=== PATIENT | male | born 1970 | race Caucasian/White ===

== ENCOUNTER 2018-09-24 12:18 | Outpatient (CLI) | payer SELFPAY ==
[~2018-09-24] VITALS: Ht 182.9 cm; Wt 122.5 kg
[2018-09-24] MEDS ORDERED: METF-399 PO (15:09)
[2018-09-24] MEDS ORDERED: SULF1TAB35 PO (15:09)
[2018-09-24] MEDS ORDERED: INSU100I10 SQ (15:09)
== END 2018-09-24 15:16 | disposition home or self-care (01) ==
LOC: PREOP 12:18
PROVIDERS: ATTEND Podiatrist Foot & Ankle Surgery
DX: Z01.818 Encounter for other preprocedural examination (principal)

== ENCOUNTER 2018-09-26 08:58 | Day surgery (SDC) | payer SELFPAY ==
[~2018-09-26] VITALS: Ht 182.9 cm; Wt 122.5 kg
[~2018-09-26 08:58] MED LIST: INSU100I10 SQ; METF-399 PO; SULF1TAB35 PO
[2018-09-26] MEDS ORDERED: LACTATED RINGERS 1,000 ML IV PRN (09:08)
[2018-09-26] MEDS ORDERED: BUPIVACAINE 0.5% 30 ML (SENSORCAINE) VIAL ONE (09:09)
[2018-09-26] MEDS ORDERED: LIDOCAINE 1% INJ 20 ML 20 ML VIAL ONE (09:09)
[2018-09-26 09:20] VITALS: BP 131/84
[2018-09-26] MEDS ORDERED: fentaNYL INJECTION 100 MCG/2 ML AMP ONE (09:27)
[2018-09-26] MEDS ORDERED: PROPOFOL INJECTION 50 ML IV ONE (09:27)
[2018-09-26] MEDS ORDERED: MIDAZOLAM 2 MG/2 ML (VERSED) VIAL ONE (09:27)
[2018-09-26] MEDS ORDERED: VANCOMYCIN INJECTION 1,000 MG in NS (IVPB) 250 ML IV ONE (10:00)
--- NOTE | 2018-09-26 10:45 | Anesthesia-General Post-Op ---
MAC Patient Condition Mental Status/LOC: Same as Preop Cardiovascular: Satisfactory Nausea/Vomiting: Absent Respiratory: Satisfactory Pain: Controlled Complications: Absent Post Op Complications Complications None Follow Up Care/Instructions Patient Instructions None needed. Anesthesiology Discharge Order Discharge Order Patient is doing well, no complaints, stable vital signs, no apparent adverse anesthesia problems. No complications reported per nursing. THOMAS BURROUGHS CRNA Sep 26, 2018 10:45
[2018-09-26] MEDS ORDERED: LACTATED RINGERS 1,000 ML IV SCH (10:46)
--- NOTE | 2018-09-26 10:46 | Progress Note-Pre Operative ---
Pre-Operative Progress Note H&P Reviewed The H&P was reviewed, patient examined and no changes noted. Date Seen by Provider: Sep 26, 2018 Time Seen by Provider: 10:00 Date H&P Reviewed: Sep 26, 2018 Time H&P Reviewed: 10:01 Pre-Operative Diagnosis: Osteomyelitis left 3rd digit REBEKAH TORRES DPLaura Sep 26, 2018 10:46
[2018-09-26 11:15] VITALS: BP 113/82
[2018-09-26 11:45] VITALS: BP 120/84
[2018-09-26 12:10] VITALS: BP 120/84
--- NOTE | 2018-09-26 13:02 | Physical Therapy Ortho Eval ---
PT Orthopedic Evaluation Type of Surgery left toe osteomyelitis Prior Level of Function Current Living Status: Spouse Locomotion (Upon Admit): Independent Established Durable Medical Eq: None Patient states he can get a walker from a friend. Subjective Subjective Patient in bed pre tx, agrees to PT, has no complaints of pain, states his left foot is still pretty numb. Entry Into Home: Ramp Motor Control Motor Control: Motor Control WNL ROM ROM: WFL Strength NT Transfer Transfers (B, C, W/C) (FIM): 6 Gait Gait Assistive Device: FWW Right Lower Extremity: Right Weight Bearing Status RLE: Full Weight Bearing Left Lower Extremity: Left Weight Bearing Status LLE: Partial Weight Bearing Gait (FIM): 6 Distance: 200' Gait Level of Assist: 6 Summary/Comments Patient ambulated 200' with a rolling walker with mod I, he is compliant with his weight bearing status. Patient also went up and down 1 step using a rolling walker with SBA and cues for foot placement. Treatment Rendered Treatment: Therapeutic Exercises, Gait Train, Step Train Exercise Instruction: Quad Sets, Heel Slides, Ankle Pumps Assessment/Goals Goal Time Frame: 1 Visit Understands HEP: Yes Safe Ambulation: Yes Plan Treatment Plan: Discharge PT/Family Agrees to Plan: Yes Time Time In: 1155 Time Out: 1205 Total Billed Treatment Time: 10 Billed Treatment Time 1 visit TAE ARMIJO PT Sep 26, 2018 13:02
--- OUTSIDE RECORDS SUMMARY | 2018-09-26 13:41 | XMS REPORT | Continuity of Care Document ---
Demographics Preferred Language Unknown Marital Status Unknown Gnosticist Affiliation Unknown Race Unknown Ethnic Group Unknown Author Organization Unknown Address Unknown Allergies There is no data. Medications There is no data. Problems There is no data. Procedures There is no data. Results Test Result Range CULTURE, ANAEROBIC AND AEROBIC - 09/08/18 13:30 CULTURE, ANAEROBIC BACTERIA W/GRAM STAIN NRG CULTURE, AEROBIC BACTERIA NRG A1C - 09/15/18 08:48 HEMOGLOBIN A1c 7.9 % of total Hgb <5.7 CBC w/MANUAL DIFF - 09/15/18 18:10 WHITE BLOOD CELL COUNT 8.4 Thousand/uL 3.8-10.8 RED BLOOD CELL COUNT 5.62 Million/uL 4.20-5.80 HEMOGLOBIN 16.3 g/dL 13.2-17.1 HEMATOCRIT 48.3 % 38.5-50.0 MCV 85.9 fL 80.0-100.0 MCH 29.0 pg 27.0-33.0 MCHC 33.7 g/dL 32.0-36.0 RDW 12.7 % 11.0-15.0 PLATELET COUNT 265 Thousand/uL 140-400 MPV 10.6 fL 7.5-12.5 DIFFERENTIAL, MANUAL - 09/15/18 18:10 ABSOLUTE NEUTROPHILS 4956 cells/uL 4193-9166 ABSOLUTE MONOCYTES 336 cells/uL 200-950 ABSOLUTE EOSINOPHILS 168 cells/uL 15-500 ABSOLUTE BASOPHILS 168 cells/uL 0-200 NEUTROPHILS 59 % NRG LYMPHOCYTES 31 % NRG MONOCYTES 4 % NRG EOSINOPHILS 2 % NRG BASOPHILS 2 % NRG ABSOLUTE BAND NEUTROPHILS 168 cells/uL 0-750 ABSOLUTE LYMPHOCYTES 2604 cells/uL 850-3900 BAND NEUTROPHILS 2 % NRG PLATELET ESTIMATION ADEQUATE ADEQUATE CBC MORPHOLOGY NORMAL Encounters ACCT No. Visit Date/Time Discharge Status Pt. Type Provider Facility Loc./Unit Complaint [id number] 12/16/2017 00:00:00 12/16/2017 23:59:59 CLS Outpatient [facility] 5 mins [id number] 09/24/2018 10:00:00 ACT Outpatient Jazmin Reilly [facility] [id number] 09/15/2018 18:08:00 Document Registration [id number] 09/08/2018 11:00:00 Document Registration
--- NOTE | 2018-09-26 20:27 | OPERATIVE REPORT ---
DATE OF SERVICE: 09/26/2018 SURGEON: Nithya Torres DPM PREOPERATIVE DIAGNOSIS: Osteomyelitis, left third toe. POSTOPERATIVE DIAGNOSIS: Osteomyelitis, left third toe. PROCEDURE: Partial amputation of left third toe. WOUND CLASS: Contaminated. ANESTHESIA: Monitored anesthesia care. HEMOSTASIS: Pneumatic ankle tourniquet at 250 mmHg. INDICATIONS: This 48-year-old male presents with a chronic wound to the distal aspect of the left third toe. With evaluation of the ulceration probed down to bone, x-rays indicated significant osteolysis of the distal phalanx, left third toe. Conservative therapy has met with unsatisfactory results and the patient is agreeable to surgical intervention after risks and complications were discussed at length. No guarantees were extended to the patient and he is willing to proceed. DESCRIPTION OF PROCEDURE: The patient was brought back to the operating room table, placed in a secure supine position. Appropriate timeout was performed. Local anesthetic was administered utilizing aseptic technique including injection of 10 mL of 0.5% Marcaine to the left third ray. The left foot was prepped and draped in normal sterile manner. The left foot was then elevated and allowed to exsanguinate, after which the tourniquet was inflated to 250 mmHg. Attention was then directed to the dorsal aspect of the left third toe where an incision was created overlying the proximal phalanx from medial to lateral. The incision was then extended distally and plantarly creating a plantar flap. The digit was then disarticulated at the proximal interphalangeal joint and the distal fragment was sent for gross and microscopic evaluation after a sample of the distal phalanx was taken for culture and sensitivity. The remaining portion of the proximal left third toe was without pathology. No abscess, no necrosis, no malodor identified. The extensor and flexor tendons were cut as proximally as possible. The wound was flushed with copious amounts of normal saline. A swab culture was taken of the remainder of the left third toe. The wound was then closed utilizing 4-0 Vicryl in a simple interrupted type stitch with the plantar flap suture without tension. The tourniquet was released noting appropriate cap refill time to all digits of the left foot. Postoperative dressing consisted of Betadine soaked Adaptic, sterile 4 x 4, sterile Kerlix, all secured with Coban wrap. The patient tolerated the anesthesia and procedure well, was transported from the operating room to the recovery area with vital signs stable and vascular status intact to all digits of the left foot. He is to continue with Bactrim antibiotic. He is to follow up at the [facility] in 1 week period of time or sooner if necessary. Job ID: [id number] DocumentID: [id number] Dictated Date: 09/26/2018 10:54:45 Public Health Doctor Date: 09/26/2018 20:26:56 Dictated By: NITHYA TORRES DPM
== END 2018-09-26 12:10 | disposition home or self-care (01) ==
LOC: SDC 08:58
PROVIDERS: ATTEND Podiatrist Foot & Ankle Surgery
DX: E11.69 Type 2 diabetes mellitus with other specified complication (principal); M86.9 Osteomyelitis, unspecified; E11.42 Type 2 diabetes mellitus with diabetic polyneuropathy; F41.9 Anxiety disorder, unspecified; G47.33 Obstructive sleep apnea (adult) (pediatric); K21.9 Gastro-esophageal reflux disease without esophagitis; E66.9 Obesity, unspecified; Z68.36 Body mass index [BMI] 36.0-36.9, adult; Z79.4 Long term (current) use of insulin; Z79.899 Other long term (current) drug therapy; Z87.891 Personal history of nicotine dependence
CPT/HCPCS: 82962; 87070; 87075; 87077; 87081; 87101; 87205

== ENCOUNTER 2019-08-31 19:14 | Inpatient (IN) | payer SELFPAY ==
[~2019-08-31] VITALS: Ht 182.8 cm; Wt 129.3 kg
[2019-08-31] MEDS ORDERED: KETOROLAC 30 MG/ML VIAL IVP STA (19:48)
[2019-08-31] MEDS ORDERED: NS 100 ML (IVPB) BAG IV ONE (20:00)
[2019-08-31] MEDS ORDERED: ONDANSETRON 4 MG/2 ML (SDV) Z0FRAN IVP ONE (20:00)
[2019-08-31] MEDS ORDERED: PANTOPRAZOLE 40 MG (PROTONIX) VIAL IV ONE ×2 (20:00→22:30)
[2019-08-31] MEDS ORDERED: HOLD METFORMIN - RECEIVED CONTRAST 20 ML VIAL IV SCH (20:00)
[2019-08-31] MEDS ORDERED: IOHEXOL 350 MG/ML 100 ML (OMNIPAQUE 350) VIAL IV ONE (20:00)
[2019-08-31 20:02] LABS: BASOPHILS # (AUTO) 0.1 10^3/uL (0.0-0.1); BASOPHILS % (AUTO) 0 % (0-10); EOSINOPHILS # (AUTO) 0.2 10^3/uL (0.0-0.3); EOSINOPHILS % (AUTO) 2 % (0-10); HEMATOCRIT 48 % (40-54); HEMOGLOBIN 16.6 G/DL (13.3-17.7); LYMPHOCYTES # (AUTO) 2.6 X 10^3 (1.0-4.0); LYMPHOCYTES % (AUTO) 24 % (12-44); MEAN CORPUSCULAR HEMOGLOBIN 28 PG (25-34); MEAN CORPUSCULAR HGB CONC 35 G/DL (32-36); MEAN CORPUSCULAR VOLUME 81 FL (80-99); MEAN PLATELET VOLUME 10.3 FL (7.4-10.4); MONOCYTES # (AUTO) 0.8 X 10^3 (0.0-1.0); MONOCYTES % (AUTO) 7 % (0-12); NEUTROPHILS # (AUTO) 7.5 X 10^3 (1.8-7.8); NEUTROPHILS % (AUTO) 67 % (42-75); PLATELET COUNT 291 10^3/uL (130-400); RED CELL DISTRIBUTION WIDTH 13.7 % (10.0-14.5); WHITE BLOOD COUNT 11.2 10^3/uL (4.3-11.0)
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
[2019-08-31 20:36] LABS: ALANINE AMINOTRANSFERASE 36 U/L (0-55); ALBUMIN 4.7 GM/DL (3.2-4.5); ALKALINE PHOSPHATASE 78 U/L (40-136); AMYLASE 151 U/L (25-125); BILIRUBIN,TOTAL 0.4 MG/DL (0.1-1.0); BUN/CREATININE RATIO 10; CALCIUM 9.4 MG/DL (8.5-10.1); CARBON DIOXIDE 21 MMOL/L (21-32); CHLORIDE 104 MMOL/L (98-107); CREATININE SERUM 0.97 MG/DL (0.60-1.30); GFR ESTIMATED > 60; GLUCOSE 165 MG/DL (70-105); LIPASE 97 U/L (8-78); POTASSIUM 4.2 MMOL/L (3.6-5.0); SODIUM 138 MMOL/L (135-145)
--- NOTE | 2019-08-31 20:45 | Diagnostic Imaging Report ---
PROCEDURE: CT abdomen and pelvis with contrast, rule out appendicitis. TECHNIQUE: Multiple contiguous axial images were obtained through the abdomen and pelvis after the administration of intravenous contrast. All CT scans use one or more of the following dose optimizing techniques: automated exposure control, MA and/or KvP adjustment based on a patient size and exam type, or iterative reconstruction. INDICATION: Right-sided abdominal pain for four days. Constipation. FINDINGS: There are multiple air and fluid-filled loops of large and small bowel in appearance consistent with a nonobstructive ileus. There is no bowel wall edema. There is diverticulosis with no evidence of diverticulitis. The appendix is normal. The liver, gallbladder and bile ducts are normal. The spleen, pancreas and adrenals are normal. There is a 4 x 8 mm nonobstructing calculus in the right mid kidney with a 2 mm nonobstructing calculus in the right upper kidney. Left kidney is normal. There is no hydronephrosis on either side. The ureters and bladder are normal. There is no free intraperitoneal air or fluid. IMPRESSION: The bowel gas pattern is most consistent with a nonobstructive ileus. There are nonobstructing stones in the right kidney. Dictated by: Dictated on workstation # [id number]
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
[2019-08-31 21:29] LABS: BILIRUBIN,URINE NEGATIVE (NEGATIVE); CLARITY,URINE CLEAR; COLOR,URINE YELLOW; GLUCOSE, URINE (UA) TRACE (NEGATIVE); KETONES,URINE NEGATIVE (NEGATIVE); LEUKOCYTE ESTERASE ,URINE NEGATIVE (NEGATIVE); NITRITE,URINE NEGATIVE (NEGATIVE); PROTEIN,URINE NEGATIVE (NEGATIVE)
[2019-08-31] MEDS ORDERED: fentaNYL INJECTION 100 MCG/2 ML AMP IVP ONE (21:30)
[2019-08-31 21:35] LABS: BACTERIA,URINE TRACE /HPF; SQUAMOUS EPITHELIAL CELL,UR 0-2 /HPF; WBC,URINE RARE /HPF
--- NOTE | 2019-08-31 23:00 | NUR ---
KRISHAN DIA admitted to room 425-1, with an admitting diagnosis of abd pain, on 08/31/19 from ed via wheelchair, accompanied by staff and .KRISHAN DIA introduced to surroundings, call light, bed controls, phone, TV, temperature control, lights, meal times, smoking policy, visitor policy, side rail policy, bathrooms and showers. Patient Rights given to patient in the handbook. KRISHAN DIA verbalizes understanding that [facility] is not responsible for the loss or damage to any personal effects or valuables that are kept in the patients posession during their hospitalization. KRISHAN DIA verbalizes understanding of Interdisciplinary Patient Education. Patient and/or family were informed about the Rapid Response Team and its purpose.
[2019-08-31 23:24] VITALS: BP 156/102
[2019-08-31] MEDS ORDERED: CATHETER FLUSH 10 ML SYR IV PRN (23:30)
[2019-08-31] MEDS: fentaNYL INJECTION 100 MCG/2 ML AMP IV PRN (23:53)
[2019-09-01] VITALS: BP 156/102
[2019-09-01] MEDS: ONDANSETRON 4 MG/2 ML (SDV) Z0FRAN IV PRN ×3 (01:09→12:44)
[2019-09-01] MEDS: D5 1/2 NS W/KCL 20 MEQ/L 1,000 ML IV SCH ×4 (01:09→20:35)
[2019-09-01] MEDS: inSUlin ASPART (NovoLOG) 1 UNIT/0.01 ML (CHARGE PER UNIT) SC SCH ×4 (01:11→18:12)
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
--- OUTSIDE RECORDS SUMMARY | 2019-09-01 02:27 | XMS REPORT | Continuity of Care Document ---
Demographics Preferred Language Unknown Marital Status Unknown Gnosticist Affiliation Unknown Race Unknown Ethnic Group Unknown Author Organization Unknown Address Unknown Phone Unavailable Allergies There is no data. Medications There is no data. Problems There is no data. Procedures There is no data. Results Test Result Range CULTURE, ANAEROBIC AND AEROBIC - 9 13:30 CULTURE, ANAEROBIC BACTERIA W/GRAM STAIN NRG CULTURE, AEROBIC BACTERIA NRG CRP - 09/15/18 08:48 C-REACTIVE PROTEIN 2.3 mg/L <8.0 TEST AUTHORIZATION - 09/15/18 08:48 TEST NAME: C-REACTIVE PROTEIN NRG TEST CODE: [id number] NRG CLIENT CONTACT: LEBRON QUINTANA NRG REPORT ALWAYS MESSAGE SIGNATURE NRG COMMENT NRG CBC w/MANUAL DIFF - 09/15/18 18:10 WHITE BLOOD CELL COUNT 8.4 Thousand/uL 3 .8-10.8 RED BLOOD CELL COUNT 5.62 Million/uL 4.2 0-5.80 HEMOGLOBIN 16.3 g/dL 13.2-17.1 HEMATOCRIT 48.3 % 38.5-50.0 MCV 85.9 fL 80.0-100.0 MCH 29.0 pg 27.0-33.0 MCHC 33.7 g/dL 32.0-36.0 RDW 12.7 % 11.0-15.0 PLATELET COUNT 265 Thousand/uL 140-400 MPV 10.6 fL 7.5-12.5 DIFFERENTIAL, MANUAL - 09/15/18 18:10 ABSOLUTE NEUTROPHILS 4956 cells/uL 1500- 7800 ABSOLUTE MONOCYTES 336 cells/uL 200-950 ABSOLUTE EOSINOPHILS 168 cells/uL 15-500 ABSOLUTE BASOPHILS 168 cells/uL 0-200 NEUTROPHILS 59 % NRG LYMPHOCYTES 31 % NRG MONOCYTES 4 % NRG EOSINOPHILS 2 % NRG BASOPHILS 2 % NRG ABSOLUTE BAND NEUTROPHILS 168 cells/uL 0 -750 ABSOLUTE LYMPHOCYTES 2604 cells/uL 850-3 900 BAND NEUTROPHILS 2 % NRG PLATELET ESTIMATION ADEQUATE ADEQUATE CBC MORPHOLOGY NORMAL CMP - 10/27/18 17:10 GLUCOSE 144 mg/dL 65-99 UREA NITROGEN (BUN) 19 mg/dL 7-25 CREATININE 1.00 mg/dL 0.60-1.35 eGFR NON-AFR. SENEGALESE 89 mL/min/1.73m2 > OR = 60 eGFR 103 mL/min/1.73m2 > OR = 60 BUN/CREATININE RATIO NOT APPLICABLE (calc) 6-22 SODIUM 139 mmol/L 135-146 POTASSIUM 4.3 mmol/L 3.5-5.3 CHLORIDE 104 mmol/L 98-110 CARBON DIOXIDE 23 mmol/L 20-32 CALCIUM 9.6 mg/dL 8.6-10.3 PROTEIN, TOTAL 7.1 g/dL 6.1-8.1 ALBUMIN 4.5 g/dL 3.6-5.1 GLOBULIN 2.6 g/dL (calc) 1.9-3.7 ALBUMIN/GLOBULIN RATIO 1.7 (calc) 1.0-2. 5 BILIRUBIN, TOTAL 0.5 mg/dL 0.2-1.2 ALKALINE PHOSPHATASE 70 U/L 40-115 AST 14 U/L 10-40 ALT 16 U/L 9-46 CBC w/MANUAL DIFF - 10/27/18 17:10 WHITE BLOOD CELL COUNT 10.5 Thousand/uL 3.8-10.8 RED BLOOD CELL COUNT 5.40 Million/uL 4.2 0-5.80 HEMOGLOBIN 15.4 g/dL 13.2-17.1 HEMATOCRIT 46.9 % 38.5-50.0 MCV 86.9 fL 80.0-100.0 MCH 28.5 pg 27.0-33.0 MCHC 32.8 g/dL 32.0-36.0 RDW 12.4 % 11.0-15.0 PLATELET COUNT 247 Thousand/uL 140-400 MPV 10.3 fL 7.5-12.5 ABSOLUTE NEUTROPHILS 5733 cells/uL 1500- 7800 ABSOLUTE MONOCYTES 1061 cells/uL 200-950 ABSOLUTE EOSINOPHILS 105 cells/uL 15-500 ABSOLUTE BASOPHILS 0 cells/uL 0-200 NEUTROPHILS 54.6 % NRG LYMPHOCYTES 31.3 % NRG MONOCYTES 10.1 % NRG EOSINOPHILS 1.0 % NRG BASOPHILS 0 % NRG ABSOLUTE BAND NEUTROPHILS 210 cells/uL 0 -750 ABSOLUTE METAMYELOCYTES 105 cells/uL ABSOLUTE LYMPHOCYTES 3287 cells/uL 850-3 900 BAND NEUTROPHILS 2.0 % NRG METAMYELOCYTES 1.0 % NRG PLATELET ESTIMATION ADEQUATE ADEQUATE URIC ACID, SERUM - 10/28/18 09:31 URIC ACID 6.7 mg/dL 4.0-8.0 ESR/SED RATE - 10/28/18 09:31 SED RATE BY MODIFIED ALEXANDRAERGGERALDINE 6 mm/h < OR = 15 CMP - 07/20/19 11:38 GLUCOSE 160 mg/dL 65-99 UREA NITROGEN (BUN) 17 mg/dL 7-25 CREATININE 0.97 mg/dL 0.60-1.35 eGFR NON-AFR. SENEGALESE 92 mL/min/1.73m2 > OR = 60 eGFR 107 mL/min/1.73m2 > OR = 60 BUN/CREATININE RATIO NOT APPLICABLE (calc) 6-22 SODIUM 139 mmol/L 135-146 POTASSIUM 4.1 mmol/L 3.5-5.3 CHLORIDE 100 mmol/L 98-110 CARBON DIOXIDE 31 mmol/L 20-32 CALCIUM 9.5 mg/dL 8.6-10.3 PROTEIN, TOTAL 7.2 g/dL 6.1-8.1 ALBUMIN 4.5 g/dL 3.6-5.1 GLOBULIN 2.7 g/dL (calc) 1.9-3.7 ALBUMIN/GLOBULIN RATIO 1.7 (calc) 1.0-2. 5 BILIRUBIN, TOTAL 0.7 mg/dL 0.2-1.2 ALKALINE PHOSPHATASE 76 U/L 36-130 AST 18 U/L 10-40 ALT 34 U/L 9-46 CBC - 07/20/19 11:38 WHITE BLOOD CELL COUNT 8.4 Thousand/uL 3 .8-10.8 RED BLOOD CELL COUNT 5.53 Million/uL 4.2 0-5.80 HEMOGLOBIN 16.2 g/dL 13.2-17.1 HEMATOCRIT 46.2 % 38.5-50.0 MCV 83.5 fL 80.0-100.0 MCH 29.3 pg 27.0-33.0 MCHC 35.1 g/dL 32.0-36.0 RDW 13.3 % 11.0-15.0 PLATELET COUNT 243 Thousand/uL 140-400 MPV 10.5 fL 7.5-12.5 ABSOLUTE NEUTROPHILS 5216 cells/uL 1500- 7800 ABSOLUTE LYMPHOCYTES 2302 cells/uL 850-3 900 ABSOLUTE MONOCYTES 596 cells/uL 200-950 ABSOLUTE EOSINOPHILS 218 cells/uL 15-500 ABSOLUTE BASOPHILS 67 cells/uL 0-200 NEUTROPHILS 62.1 % NRG LYMPHOCYTES 27.4 % NRG MONOCYTES 7.1 % NRG EOSINOPHILS 2.6 % NRG BASOPHILS 0.8 % NRG ESR/SED RATE - 07/20/19 11:38 SED RATE BY MODIFIED WESTERGREN 2 mm/h < OR = 15 A1C - 07/20/19 11:38 HEMOGLOBIN A1c 8.0 % of total Hgb <5.7 Encounters ACCT No. Visit Date/Time Discharge Status Pt. Type Provider Facility Loc./Unit Complaint [id number] 12/16/2017 00:00:00 12/16/2017 23:59:5 9 CLS Outpatient [facility] 5 mins [id number] 08/31/2019 17:20:00 ACT Outpatient Jazmin Reilly [id number] 07/20/2019 09:00:00 Document Registration [id number] 10/28/2018 09:20:00 Document Registration [id number] 10/27/2018 18:20:00 Document Registration [id number] 09/15/2018 18:08:00 Document Registration [id number] 09/08/2018 11:00:00 Document Registration
--- OUTSIDE RECORDS SUMMARY | 2019-09-01 03:13 | XMS REPORT | Continuity of Care Document ---
Demographics Preferred Language Unknown Marital Status Unknown Shinto Affiliation Unknown Race Unknown Ethnic Group Unknown [...] 7-25 CREATININE 1.00 mg/dL 0.60-1.35 eGFR NON-AFR. ARMENIAN 89 mL/min/1.73m2 > OR = 60 eGFR [...] 7-25 CREATININE 0.97 mg/dL 0.60-1.35 eGFR NON-AFR. ARMENIAN 92 mL/min/1.73m2 > OR = 60 eGFR [...] Status Pt. Type Provider Facility Loc./Unit Complaint [id number] 12/16/2017 00:00:00 12/16/2017 23:59:5 9 CLS Outpatient [facility] 5 mins [id number] 08/31/2019 17:20:00 ACT Outpatient Jazmin Reilly [id number] 07/20/2019 09:00:00 Document Registration [id number] 10/28/2018 09:20:00 Document Registration [id number] 10/27/2018 18:20:00 Document Registration [id number] 09/15/2018 18:08:00 Document Registration [id number] 09/08/2018 11:00:00 Document Registration
[2019-09-01 04:00] VITALS: BP 176/120
--- NOTE | 2019-09-01 04:40 | NUR ---
PCCT INFORMS THIS RN PT IS IN PAIN AND WOULD LIKE PAIN MEDICATION. WHEN RN ENTERS ROOM PT IS YELLING THAT THE PCCT IS RUDE AND HE HAD PUSHED HIS CALL LIGHT ONCE AND ASKED FOR PAIN MEDIATIONS AND WHEN HE PUSHED IT AGAIN THE PCCT WAS SHORT WITH HIM. HE REQUEST PCCT NOT ENTER BACK INTO HIS ROOM. PT INFORMED THIS RN WAS IN ANOTHER PTS ROOM AND S0ON I CAME OUT OF ROOM PCCT INFORMED ME OF PAIN MEDICATION REQUEST. PT STATES HE CAN SEE HE IS NOT GOING TO GET ANYWHERE WITH ME. PAIN MEDICATION GIVEN TO PT AT THIS TIME. PT INFORMED PCCT WOULD NOT BE IN ROOM AGAIN.
[2019-09-01] MEDS: fentaNYL INJECTION 100 MCG/2 ML AMP IV PRN ×8 (04:49→18:27)
[2019-09-01] MEDS: CATHETER FLUSH 10 ML SYR IV SCH ×3 (04:50→20:40)
[2019-09-01 05:23] LABS: BASOPHILS % (AUTO) 0 % (0-10); EOSINOPHILS # (AUTO) 0.2 10^3/uL (0.0-0.3); EOSINOPHILS % (AUTO) 2 % (0-10); HEMATOCRIT 45 % (40-54); HEMOGLOBIN 15.2 G/DL (13.3-17.7); LYMPHOCYTES % (AUTO) 20 % (12-44); MEAN CORPUSCULAR HEMOGLOBIN 28 PG (25-34); MEAN CORPUSCULAR HGB CONC 34 G/DL (32-36); MEAN CORPUSCULAR VOLUME 83 FL (80-99); MEAN PLATELET VOLUME 10.4 FL (7.4-10.4); MONOCYTES # (AUTO) 0.7 X 10^3 (0.0-1.0); MONOCYTES % (AUTO) 7 % (0-12); NEUTROPHILS # (AUTO) 7.2 X 10^3 (1.8-7.8); NEUTROPHILS % (AUTO) 71 % (42-75); PLATELET COUNT 225 10^3/uL (130-400); RED CELL DISTRIBUTION WIDTH 13.8 % (10.0-14.5); WHITE BLOOD COUNT 10.1 10^3/uL (4.3-11.0)
--- NOTE | 2019-09-01 05:40 | NUR ---
THIS RN RECEIVES CALL FROM PT . SHE STATES PT IS REQUESTING NAUSEA MEDICATION AND HE IS NOT GOING TO PUSH THE BUTTON AND ASK BECAUSE PCCT WAS RUDE TO HIM. THIS RN EXPLAINED TO WHAT HAPPENED. ALSO INFORMED PT CAN PUSH LIGHT MANY TIMES HE FEELS THE NEED. INFORMED PT WOULD BE GIVEN ZOFAN AT THIS TIME.
--- NOTE | 2019-09-01 05:48 | NUR ---
PT GIVEN ZOFRAN AT THIS TIME. PT IS YELLING BEING RUDE TO THIS RN ABOUT PCCT NOT COMING IN HIS ROOM. PT CONTINUES TO YELL OUT COMPLAINING OF PAIN AND NAUSEA. DR. LANG CALLED AT PT BEDSIDE. INFORMED OF PT CONTINUED PAIN AND NAUSEA WITH NO RESULTS FROM FENTANYL OR ZOFRAN. ORDER TO GIVE FENTANYL 50MCG IV Q1HR PRN AND PHENERGAN 12.5 MG Q3HR IV PRN.
[2019-09-01 05:52] LABS: ALANINE AMINOTRANSFERASE 32 U/L (0-55); ALBUMIN 4.1 GM/DL (3.2-4.5); ALKALINE PHOSPHATASE 68 U/L (40-136); AMYLASE 82 U/L (25-125); BILIRUBIN,TOTAL 0.5 MG/DL (0.1-1.0); BUN/CREATININE RATIO 10; CALCIUM 8.2 MG/DL (8.5-10.1); CARBON DIOXIDE 19 MMOL/L (21-32); CHLORIDE 106 MMOL/L (98-107); CREATININE SERUM 0.97 MG/DL (0.60-1.30); GFR ESTIMATED > 60; GLUCOSE 221 MG/DL (70-105); LIPASE 39 U/L (8-78); POTASSIUM 4.6 MMOL/L (3.6-5.0); SODIUM 135 MMOL/L (135-145); TOTAL PROTEIN 6.9 GM/DL (6.4-8.2)
[2019-09-01] MEDS ORDERED: PROMETHAZINE INJ 25 MG/ML (PHENERGAN) AMP ONE (06:00)
[2019-09-01] MEDS: PROMETHAZINE INJ 25 MG/ML (PHENERGAN) AMP IVP PRN ×3 (06:09→14:27)
--- NOTE | 2019-09-01 06:09 | NUR ---
PHENERGAN AND FENTANYL GIVEN AT THIS TIME.
--- NOTE | 2019-09-01 06:30 | NUR ---
PT RATE PAIN 5/10 AND STATES HE NO LONGER HAS ANY NAUSEA. THIS RN INFORMED PT TO PUSH CALL LIGHT WHEN NEEDING ANY ASSISTANCE.
[2019-09-01] MEDS: PANTOPRAZOLE 40 MG (PROTONIX) VIAL IV SCH (07:49)
[2019-09-01 08:00] VITALS: BP 151/95
--- NOTE | 2019-09-01 09:38 | NUR ---
Patient c/o increased pain to left rib area. He is holding the area et reports that helps with the pain. Gastric PH tested 2.5 very difficult to draw fluid out of NG tube to test PH. 60ml of free fluid used to flush the NG. Continues to be difficult to draw fluid out. Active bowel sounds X4 quadrants et does not report pain when palpating his abdomen. Abdomen is large et firm. Reported findings to [facility] RN.
--- NOTE | 2019-09-01 09:45 | NUR ---
DIGITAL MARKETING MANAGER WAS CALLED AND SHE WAS TO FLOOR -- SHE CHECKED ON PT AND THIS RN IN ROOM -- DIGITAL MARKETING MANAGER VOICED PTS SOMETIME VOMITS AROUND NG TUBE -- TO CALL DR LANG -- THIS RN CALLED DR LANG NO ANSWER -- THEN THIS RN CALLED [facility] ABOUT PT AND GOT A ONE TIME ORDER FOR IN ATIVAN 0.[address] LANG WOULD BE TO FLOOR THIS AM
--- NOTE | 2019-09-01 09:51 | Diagnostic Imaging Report ---
INDICATION: PROCEDURE: Ultrasound abdomen complete. TECHNIQUE: Multiple real-time grayscale images were obtained of the abdomen in various projections. INDICATION: Abdominal pain There are no prior ultrasound examinations available for comparison. The CT abdomen/pelvis exam performed on 08/31/2019 noted a bowel gas pattern which suggested a nonobstructive ileus. There are also nonobstructive calculi within the right kidney. On this exam, there is no evidence for cholelithiasis or acute cholecystitis and the common bile duct is not dilated. The liver is prominent but not enlarged. The liver does seem more echogenic than usually seen and this does suggest fatty metamorphosis. There is no focal mass involving the liver and the biliary tree is not abnormally dilated. The pancreas and the aorta were obscured by bowel gas. The kidneys are normal in size and appearance. The nonobstructive calculi in the right kidney seen on the CT exam could not be appreciated on this study. There is no evidence for a solid renal mass or for hydronephrosis. There is no mass or free fluid collection evident. IMPRESSION: 1. There is no acute abnormality of the abdomen although the pancreas and proximal aorta were obscured by bowel gas. Dictated by: Dictated on workstation # [id number]
[2019-09-01] MEDS ORDERED: LORazepam INJ 2 MG/ML (ATIVAN) VIAL IVP PRN (10:00)
[2019-09-01 12:00] VITALS: BP 155/91
[2019-09-01] MEDS ORDERED: MAGNESIUM CITRATE 300 ML BTL PO NR (14:00)
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
[2019-09-01 16:00] VITALS: BP 160/102
[2019-09-01] MEDS: METOCLOPRAMIDE INJ 10 MG/2 ML (REGLAN) IVP SCH (18:12)
[2019-09-01 20:00] VITALS: BP 147/89
[2019-09-02] MEDS: METOCLOPRAMIDE INJ 10 MG/2 ML (REGLAN) IVP SCH ×3 (00:22→11:45)
[2019-09-02] MEDS: inSUlin ASPART (NovoLOG) 1 UNIT/0.01 ML (CHARGE PER UNIT) SC SCH ×3 (00:28→11:42)
[2019-09-02 00:29] VITALS: BP 139/91
[2019-09-02] MEDS: D5 1/2 NS W/KCL 20 MEQ/L 1,000 ML IV SCH ×2 (03:02→09:23)
[2019-09-02] MEDS: CATHETER FLUSH 10 ML SYR IV SCH ×2 (04:21→11:33)
[2019-09-02 05:52] VITALS: BP 122/85
[2019-09-02 07:00] VITALS: BP 140/93
[2019-09-02] MEDS: PANTOPRAZOLE 40 MG (PROTONIX) VIAL IV SCH (09:02)
[2019-09-02] MEDS ORDERED: AMIT25TA9 PO (11:12)
[2019-09-02] MEDS ORDERED: DULA1.5P2 SQ (11:12)
[2019-09-02] MEDS ORDERED: VENL37.52 PO (11:12)
[2019-09-02] MEDS ORDERED: PREG165T PO (11:19)
--- NOTE | 2019-09-02 11:21 | NUR ---
SPOKE WITH THE PT(AND SPOKE WITH HIS ON THE PHONE) AND CALLED [facility] IN [place] TO COMPLETE THE MED REC. PT'S HERRERA TAKES CARE OF MOST OF HIS MEDICATIONS AND WAS ABLE TO TELL ME ABOUT WHAT HE TAKES. THE FOLLOWING ARE FILL DATES: 06-26-2019 EFFEXOR XR 37.5MG #180/90DS 06-26-2019 AMITRIPTYLINE 25MG #90/90DS 06-26-2019 METFORMIN 1000MG #180/90DS 07-22-2019 LYRICA CR 165MG #30/30DS (THIS IS MAIL ORDER FROM THE GENETIC ENGINEER) 08-24-2019 BACTRIM DS #14/7DS (PT HAS NOT FINISHED THIS THERAPY WHEN HE WAS ADMITTED) PT ALSO GETS LANTUS AND TRULICITY SAMPLES FROM THE CLINIC BUT THEY DID NOT HAVE DATES WHEN IT WAS DISPENSED BUT THEY KNEW IT WAS GIVEN RECENTLY. NO OTC MEDS
[2019-09-02 12:55] VITALS: BP 137/88
[2019-09-02 15:28] VITALS: BP 137/88
--- NOTE | 2019-09-02 15:31 | NUR ---
KRISHAN DIA demonstrates understanding of discharge instructions and accurately returns instructions upon questioning. Copy of Post-Discharge Instructions and Medication Discharge Instructions given to PT. KRISHAN DIA iS able to manage continuing needs after discharge. Patients belongings returned to PT. Skin dry and intact; no breakdown noted. Patient discharged from [facility]- on 09/02/19 at 1530. KRISHAN DIA left floor AMBULATING, accompanied by STAFF.
== END 2019-09-02 15:30 | disposition home or self-care (01) | DRG 390 ==
LOC: EDUNIT# 19:14 → ER 19:16 → 4TH 22:30
PROVIDERS: ADMIT Surgery; ATTEND Surgery
PROC: 0D9670Z Drainage of Stomach with Drainage Device, Via Natural or Artificial Opening (ICD-10-PCS; principal; 2019-08-31)
DX: K56.7 Ileus, unspecified (principal); R85.0 Abnormal level of enzymes in specimens from digestive organs and abdominal cavity; K59.00 Constipation, unspecified; K21.9 Gastro-esophageal reflux disease without esophagitis; E11.9 Type 2 diabetes mellitus without complications; E66.9 Obesity, unspecified; G47.30 Sleep apnea, unspecified; Z87.891 Personal history of nicotine dependence; Z79.4 Long term (current) use of insulin; Z68.38 Body mass index [BMI] 38.0-38.9, adult; Z89.422 Acquired absence of other left toe(s); Z89.421 Acquired absence of other right toe(s); Z95.828 Presence of other vascular implants and grafts
CPT/HCPCS: 36415; 74022; 74177; 76700; 80053; 81000; 82150; 82962; 83690; 85025

== ENCOUNTER → 2020-01-22 | Outpatient (CLI) | payer SELFPAY ==
[~2020-01-22] MED LIST changes: +AMIT25TA9 PO; +BARIUM SUSPENSION 2.1% (VANILLA SILQ) 450 ML PO ONE; +CATHETER FLUSH 10 ML SYR IV PRN; +DULA1.5P2 SQ; +HOLD METFORMIN - RECEIVED CONTRAST 20 ML VIAL IV SCH; +IOHEXOL 350 MG/ML 100 ML (OMNIPAQUE 350) VIAL IV ONE; +NS 100 ML (IVPB) BAG IV ONE; +PREG165T PO; +VENL37.52 PO
--- NOTE | 2020-01-22 11:42 | Diagnostic Imaging Report ---
PROCEDURE: CT abdomen with and without contrast. TECHNIQUE: Multiple contiguous axial CT images of the abdomen were obtained prior to and after intravenous administration of iodinated contrast. Auto Exposure Controls were utilized during the CT exam to meet ALARA standards for radiation dose reduction. INDICATION: Pancreatic mass, follow-up. CORRELATION is made with prior CT from 08/31/2019. FINDINGS: The lung bases are clear. Liver demonstrates generalized low density consistent with hepatic steatosis. No discrete liver mass is detected. The gallbladder is unremarkable. No biliary ductal dilatation is seen. There is a slightly hyperdense lesion in the pancreatic tail measuring approximately 3.0 x 2.0 cm compared with 2.8 x 2.1 cm on prior. No new pancreatic mass is seen. No pancreatic ductal dilatation is identified. The spleen is unremarkable. Small nodules anterior to the spleen appear stable and may represent small accessory spleens. No adrenal mass is detected. Right kidney does contain a 6 mm nonobstructing calculus. Kidneys are otherwise unremarkable. Aorta is non-aneurysmal. No central retroperitoneal or mesenteric lymphadenopathy is identified. Visualized bowel loops are normal caliber. There is no ascites. IMPRESSION: 1. Hepatic steatosis. 2. Nonobstructing right-sided nephrolithiasis. 3. Stable enhancing mass in the pancreatic tail when compared with prior study from 08/31/2019. Continued follow-up is recommended. Dictated by: Dictated on workstation # [id number]
== END ==
LOC: RAD FS 09:05
PROVIDERS: ATTEND Nurse Practitioner
DX: K76.0 Fatty (change of) liver, not elsewhere classified (principal); K86.89 Other specified diseases of pancreas; N20.0 Calculus of kidney
CPT/HCPCS: 74170